=== PATIENT | female | born 1985 | race Caucasian/White ===

== ENCOUNTER 2024-08-29 20:38 | Emergency (ER) | payer BC ==
[~2024-08-29] VITALS: Ht 162.6 cm; Wt 49.9 kg
[2024-08-29] MEDS: amox tr/potassium clavulanate 875/125mg TAB PO ONE (22:12)
[2024-08-29] MEDS: LIDOcaine 1% W/epiNEPHrine 1:100,000 20ml vial SQ ONE (22:12)
[2024-08-29] MEDS: TETanus/Pertussis (Acell)/Diphther VAC/PF (Tdap-Adult) 0.5ml syringe IMVAC ONE (22:12)
--- NOTE | 2024-08-29 23:42 | Physician Documentation ---
History of Present Illness ~ Chief Complaint: Bite-animal Stated Complaint: DOG BITE Time Seen by MD: 22:02 HPI This is a 38-year-old female who presents with a dog bite to her right thumb, patient reports injury happened approximately 1 hour prior to arrival, patient reports that a another dog tried to attack her dog and she was injured breaking up the fight. Patient reports unknown last tetanus shot. Tetanus within 5 years?: No Medication Reconciliation Allergies: Coded Allergies: No Known Allergies (Unverified , 08/29/24) Scheduled Amox Tr/Potassium Clavulanate (Augmentin 875-125 Tablet), 1 TAB PO Q12H Past Medical History Past Medical History: No Pertinent History Review of Systems ROS Dog bite to right thumb as stated above in the HPI, otherwise all systems are reviewed and negative. Physical Exam Vital Signs: Temperature: 99.3, Source: Oral, Heart Rate: 96, Respiratory Rate: 16, BP: 110/65, Pulse Oximetry: 99, Weight: 49.910 Oxygen Flow Rate: 0 Physical Exam VITALS: Reviewed and as above. GENERAL: Alert, nontoxic appearing, no apparent distress. RESPIRATORY: No increased work of breathing, no respiratory distress, speaking in full clear sentences MUSCULOSKELETAL: Right hand full ROM, fingers brisk capillary refill, sensation intact SKIN: 1 cm x 1.5 cm triangular avulsion to dorsal aspect of right thumb Procedures Laceration/Wound Repair Laceration/Wound Repair : Location: Dorsal right thumb we Length (cm): 2.5 Anesthesia: Lidocaine w/ Epi Volume Anesthetic (mls): 3 Prep: irrigated by nurse Undermining: none Margins: revised, other (Loosely approximated) Foreign Body: not identified Repaired: skin Wound Repaired With: sutures Suture Size/Type: 4-0 Number of Superficial Sutures: 2 Layer Closure?: No Tolerated Procedure Well?: yes, no complications Procedure Note Due to triangular in nature of the wound it was loosely approximated utilizing two simple interrupted sutures Progress Results/Orders Results/Orders Orders - YULIA WARREN Laceration/I&D Tray Set Up (08/29/24 22:03) Completed Orders - YULIA WARREN Tetanus/Pertuss/Diph Acell/Pf (Boostrix (08/29/24 22:05) Lidocaine 1% W/Epi 1:100,000 (Xylocaine (08/29/24 22:05) Amox Tr/Potassium Clavulanate (Augmentin (08/29/24 22:05) Medications Received in ER Medications (Trade) Dose Ordered Sig/Ez Route PRN Reason Start Time Stop Time Status Last Admin Dose Admin (Boostrix vaccine syringe) 0.5 ml ONCE ONCE IMVAC 08/29/24 22:05 08/29/24 22:06 DC 08/29/24 22:12 0.5 ML (Xylocaine 1%-EPI 1:100,000) 10 ml ONCE ONCE SQ 08/29/24 22:05 08/29/24 22:06 DC 08/29/24 22:12 10 ML (Augmentin 875-125mg tablet) 1 tab ONCE ONCE PO 08/29/24 22:05 08/29/24 22:06 DC 08/29/24 22:12 1 TAB Vital Signs 08/29/24 08/29/24 20:54 23:53 Temp 99.3 98.6 Pulse 96 90 Resp 16 16 B/P (MAP) 110/65 111/66 Pulse Ox 99 99 O2 Flow Rate 0 Medical Decision Making Findings This 38-year-old female presented with a dog bite to the posterior aspect of her right thumb, wound was a shallow triangular avulsion which loose approximation was indicated for. Patient is otherwise well-appearing with no other injuries reported or observed on exam. Was reassuring patient had full range of motion in her hand and the hand was neurovascularly intact. The wound was thoroughly irrigated by nursing staff, tetanus booster given, wound loosely approximated, and patient provided 1st dose of antibiotic. Plan is for patient to be discharged on course of oral antibiotics and follow up in 2-3 days with the primary care for wound recheck. Patient provided follow up instructions, return to care precautions, and home care instructions which he verbalized under standing of. Differential Dx:Considerations: Include: Abrasion, Cellulitis, Contusion, Fracture, Hematoma, Laceration, Punture wound, Retained foreign body Departure Disposition: 01 HOME / SELF CARE / HOMELESS Impression: Primary Impression: Dog bite Qualified Codes: W54.0XXA - Bitten by dog, initial encounter Condition: Improved Discharge Instructions: Animal Bite, Adult Additional Instructions: Please take antibiotics as prescribed, please follow up in 2-3 days with your choice of medical provider for a wound recheck. Please return to your choice of medical provider in one-week for re-evaluation for possible removal of sutures. Please also follow up with your primary care provider in the next few days. Please return to the emergency department for any new or worsening concerning symptoms including but not limited for signs of infection such as increased pain and swelling to the area, increased discharge from the area, or if you develop a fever. Referrals: NO PRIMARY CARE PROVIDER (PCP) Prescriptions Amox Tr/Potassium Clavulanate (Augmentin 875-125 Tablet) 1 Each Tablet 1 TAB PO Q12H for 7 Days, #14 TAB Prov: YULIA WARREN 08/29/24 Education Educated: Patient Educated regarding: diagnosis, treatment, prognosis, need for follow up Signature Scribe Signature: No scribe Attestation: The note accurately reflects work and decisions made by me.RICARDO Paulino 08/30/24 01:16 YULIA WARREN Aug 29, 2024 23:42
[2024-08-29] MEDS ORDERED: AMOX-117 PO (23:50)
[2024-08-29 23:53] VITALS: BP 111/66; PULSE 90; RESP 16; TEMP 98.6; O2SAT 99
== END 2024-08-29 23:54 | disposition home or self-care (01) ==
LOC: ER 20:40
DX: S61.011A Laceration without foreign body of right thumb without damage to nail, initial encounter (principal); W54.0XXA Bitten by dog, initial encounter; Y93.89 Activity, other specified; Y92.89 Other specified places as the place of occurrence of the external cause; Y99.8 Other external cause status
CPT/HCPCS: 12001; 90471; 90715; 99283; J3490; A6258; A6449